=== PATIENT | male | born 1970 | race Caucasian/White ===

== ENCOUNTER 2020-03-30 00:57 | Emergency (ER) | payer BC ==
--- NOTE | 2020-03-30 01:26 | EDM.PDOC ---
ED HPI GENERAL MEDICAL PROBLEM - General Chief Complaint: Chest Pain Stated Complaint: CHEST PAIN Time Seen by Provider: 03/30/20 01:10 Source of Information: Reports: Patient, Family History Limitations: Reports: No Limitations - History of Present Illness INITIAL COMMENTS - FREE TEXT/NARRATIVE: 49-year-old male arrives with left-sided chest discomfort for the past couple of hours. It started as a tightness in his left chest without shortness of breath, diaphoresis or nausea. It did not hurt to breathe. He started developing an ache in his left arm then, and a slight discomfort in his left neck. He got up and went to the bathroom, got a glass of water and sat in a chair for a while and it went away. He was resting in the chair when it woke him up because it had returned, again went into his left arm so he came in. On arrival to the emergency room it had resolved again. He has hypertension and hypercholesterolemia, is a smoker but does not have a significant family history of heart disease. He has never had a cardiac evaluation or test. An EKG was done on arrival which was normal but he was not having pain at the time. Onset: Sudden (Started fairly suddenly 2 to 3 hours ago) Location: Reports: Chest, Upper Extremity, Left Quality: Reports: Ache, Pressure Associated Symptoms: Reports: Chest Pain. Denies: Cough, Diaphoresis, Fever/Chills, Headaches, Malaise, Nausea/Vomiting, Shortness of Breath, Weakness - Related Data Allergies Allergy/AdvReac Type Severity Reaction Status Date / Time No Known Allergies Allergy Verified 03/30/20 01:15 Home Meds: Home Meds Aspirin [[place] Aspirin] 81 mg PO DAILY 03/30/20 [History] Rosuvastatin [Crestor] 10 mg PO DAILY 03/30/20 [History] lisinopriL [Lisinopril] 5 mg PO DAILY 03/30/20 [History] ED ROS GENERAL - Review of Systems Review Of Systems: See Below Constitutional: Denies: Fever, Chills, Malaise HEENT: Reports: Other (Slight pain into the left neck) Respiratory: Denies: Shortness of Breath, Wheezing, Pleuritic Chest Pain, Cough Cardiovascular: Reports: Chest Pain. Denies: Palpitations GI/Abdominal: Denies: Abdominal Pain, Nausea, Vomiting Musculoskeletal: Reports: Arm Pain (Left side) Skin: Reports: No Symptoms Neurological: Reports: No Symptoms. Denies: Paresthesia Psychiatric: Reports: No Symptoms ED EXAM, GENERAL - Physical Exam Exam: See Below Exam Limited By: No Limitations General Appearance: Alert, No Apparent Distress Eye Exam: Bilateral Eye: Normal Inspection Head: Atraumatic Neck: Supple, Non-Tender Respiratory/Chest: No Respiratory Distress, Lungs Clear Cardiovascular: Regular Rate, Rhythm, No Murmur, No Rub GI/Abdominal: Soft, Non-Tender Extremities: Normal Inspection. No: Pedal Edema, Arm Pain Neurological: Alert, Oriented Psychiatric: Normal Affect, Normal Mood Skin Exam: Warm, Dry EKG INTERPRETATION EKG Date: 03/30/20 Rhythm: NSR QRS: Normal ST-T: Normal Course - Vital Signs Last Recorded V/S: Last Vital Signs Temp 97.7 F 03/30/20 01:19 Pulse Resp 12 03/30/20 01:19 BP 136/83 03/30/20 01:19 Pulse Ox 98 03/30/20 01:19 - Orders/Labs/Meds Orders: Active Orders 24 hr Category Date Time Status EKG Documentation Completion [RC] ASDIRECTED Care 03/30/20 01:15 Active Chest 1V Frontal [CR] Stat Exams 03/30/20 01:14 Taken EKG 12 Lead [EK] Routine Ther 03/30/20 01:14 Ordered Labs: Laboratory Tests 03/30/20 03/30/20 Range/Units 01:30 01:30 WBC 7.2 (4.5-11.0) K/uL RBC 4.66 (4.30-5.90) M/uL Hgb 13.7 (12.0-15.0) g/dL Hct 41.6 (40.0-54.0) % MCV 89 (80-98) fL MCH 29 (27-31) pg MCHC 33 (32-36) % Plt Count 212 (150-400) K/uL Neut % (Auto) 49 (36-66) % Lymph % (Auto) 38 (24-44) % [place] % (Auto) 8 H (2-6) % Eos % (Auto) 5 H (2-4) % Baso % (Auto) 0 (0-1) % Sodium 141 (140-148) mmol/L Potassium 3.8 (3.6-5.2) mmol/L Chloride 105 (100-108) mmol/L Carbon Dioxide 26 (21-32) mmol/L Anion Gap 10.5 (5.0-14.0) mmol/L BUN 12 (7-18) mg/dL Creatinine 1.2 (0.8-1.3) mg/dL Est Cr Clr Drug Dosing 77.73 mL/min Estimated GFR (MDRD) > 60 (>60) Glucose 123 H (74-106) mg/dL Calcium 8.8 (8.5-10.1) mg/dL Total Bilirubin 0.3 (0.2-1.0) mg/dL AST 18 (15-37) U/L ALT 38 (12-78) U/L Alkaline Phosphatase 70 (46-116) U/L Troponin I < 0.017 (0.000-0.056) ng/mL Total Protein 6.9 (6.4-8.2) g/dL Albumin 3.5 (3.4-5.0) g/dL Globulin 3.4 (2.3-3.5) g/dL Albumin/Globulin Ratio 1.0 L (1.2-2.2) - Re-Assessments/Exams Free Text/Narrative Re-Assessment/Exam: 03/30/20 01:25 Patient is already taken aspirin at home, and EKG was normal. A 1 view chest x- ray was ordered along with a CBC, CMP and troponin. If patient's pain recurs he will let us know but no further treatment given considering he is asymptomatic at this time. 03/30/20 02:03 Patient was in the ER for a full hour and had no further symptoms. Troponin was 0, remaining labs were reassuring. He will return between 7 and 8 AM for a second troponin, or return sooner if pain recurs and is persistent. Departure - Departure Time of Disposition: 02:13 Disposition: Home, Self-Care 01 Clinical Impression: Atypical chest pain - Discharge Information Instructions: Nonspecific Chest Pain, Adult, [id number] Referrals: PCP,None [Primary Care Provider] - Forms: ED Department Discharge Care Plan Goals: Return at 7 AM for an outpatient troponin, results will be discussed with you by Officer when available. Return anytime if pain recurs and is persistent. Consider an antacid such as Prilosec on a daily basis for the next 7 to 14 days. Sepsis Event Note (ED) - Focused Exam Vital Signs: Vital Signs Temp Resp BP Pulse Ox 03/30/20 01:19 97.7 F 12 136/83 98 - My Orders Last 24 Hours: My Active Orders 03/30/20 01:14 Chest 1V Frontal [CR] Stat EKG 12 Lead [EK] Routine 03/30/20 01:15 EKG Documentation Completion [RC] ASDIRECTED - Assessment/Plan Last 24 Hours: My Active Orders 03/30/20 01:14 Chest 1V Frontal [CR] Stat EKG 12 Lead [EK] Routine 03/30/20 01:15 EKG Documentation Completion [RC] ASDIRECTED
--- NOTE | 2020-03-30 10:20 | CR ---
CHEST: Portable 03/30/2020 at 1:28 AM CLINICAL HISTORY:Chest pain COMPARISON:None FINDINGS: The heart size, pulmonary vascularity and hilar structures are normal. No infiltrate effusion or pneumothorax is seen. IMPRESSION: No acute cardiopulmonary process.
== END 2020-03-30 02:14 | disposition home or self-care (01) ==
LOC: JP.ED 00:57
DX: R07.89 Other chest pain (principal); Z79.82 Long term (current) use of aspirin
CPT/HCPCS: 36415; 71045; 71045-26; 80053; 84484; 85025; 93005; 93010; 99285-25

== ENCOUNTER 2020-03-30 11:46 | Emergency (ER) | payer BC ==
[2020-03-30] MEDS ORDERED: Ticagrelor 90 MG Tab PO ONE (12:53)
[2020-03-30] MEDS ORDERED: Heparin Sodium 5,000 Units/ML Vial IVPUSH ONE (12:53)
[2020-03-30] MEDS ORDERED: Sodium Chloride 0.9% 10 ML Syringe FLUSH PRN (12:53)
[2020-03-30] MEDS ORDERED: Heparin Sodium/D5W 25,000 UNITS/500 ML BAG IV SCH (13:00)
--- NOTE | 2020-03-30 13:41 | EDM.PDOC ---
ED HPI GENERAL MEDICAL PROBLEM - General Chief Complaint: Cardiovascular Problem Time Seen by Provider: 03/30/20 12:53 - History of Present Illness INITIAL COMMENTS - FREE TEXT/NARRATIVE: Please see prior note for details this is a continuation of the visit from early this morning - Related Data Allergies Allergy/AdvReac Type Severity Reaction Status Date / Time No Known Allergies Allergy Verified 03/30/20 01:15 Home Meds: Home Meds Aspirin [[place] Aspirin] 81 mg PO DAILY 03/30/20 [History] Rosuvastatin [Crestor] 20 mg PO DAILY 03/30/20 [History] lisinopriL [Lisinopril] 5 mg PO DAILY 03/30/20 [History] Past Medical History HEENT History: Reports: Impaired Vision Cardiovascular History: Reports: High Cholesterol, Hypertension Respiratory History: Reports: None Gastrointestinal History: Reports: None Genitourinary History: Reports: None Musculoskeletal History: Reports: None Neurological History: Reports: None Psychiatric History: Reports: None Endocrine/Metabolic History: Reports: None Hematologic History: Reports: None Immunologic History: Reports: None Oncologic (Cancer) History: Reports: None Dermatologic History: Reports: None - Infectious Disease History Infectious Disease History: Reports: Chicken Pox - Past Surgical History Head Surgeries/Procedures: Reports: None HEENT Surgical History: Reports: None Cardiovascular Surgical History: Reports: None Respiratory Surgical History: Reports: None GI Surgical History: Reports: None Endocrine Surgical History: Reports: None Neurological Surgical History: Reports: None Musculoskeletal Surgical History: Reports: None Dermatological Surgical History: Reports: None Social & Family History - Family History Family Medical History: Noncontributory - Tobacco Use Smoking Status *Q: Current Every Day Smoker Years of Tobacco use: 25 Packs/Tins Daily: 0.5 Used Tobacco, but Quit: No Second Hand Smoke Exposure: No - Caffeine Use Caffeine Use: Reports: Coffee, Soda - Alcohol Use Days Per Week of Alcohol Use: 2 Number of Drinks Per Day: 2 Total Drinks Per Week: 4 Date of Last Drink: 03/29/20 Time of Last Drink: 22:00 - Recreational Drug Use Recreational Drug Use: No ED ROS GENERAL - Review of Systems Review Of Systems: See Below Reason Not Obtained: He is asymptomatic at this time please see prior note for review ED EXAM, GENERAL - Physical Exam Exam: See Below Exam Limited By: No Limitations General Appearance: Alert, WD/WN, No Apparent Distress Respiratory/Chest: No Respiratory Distress, Lungs Clear, Normal Breath Sounds, No Accessory Muscle Use, Chest Non-Tender Cardiovascular: Regular Rate, Rhythm, No Murmur GI/Abdominal: Soft, Non-Tender Course - Vital Signs Last Recorded V/S: Last Vital Signs Temp 97.6 F 03/30/20 13:11 Pulse 62 03/30/20 13:25 Resp 16 03/30/20 13:25 BP 130/90 03/30/20 13:25 Pulse Ox 99 03/30/20 13:25 - Orders/Labs/Meds Orders: Active Orders 24 hr Category Date Time Status Cardiac Monitoring [RC] STAT Care 03/30/20 12:53 Active Communication Order [RC] Per Unit Routine Care 03/30/20 12:53 Active Communication Order [RC] Per Unit Routine Care 03/30/20 12:53 Active EKG Documentation Completion [RC] ASDIRECTED Care 03/30/20 13:00 Active Oxygen Therapy [RC] ASDIRECTED Care 03/30/20 12:53 Active Peripheral IV Care [RC] . DIRECTED Care 03/30/20 12:54 Active INR,PT,PROTHROMBIN TIME [COAG] Stat Lab 03/30/20 13:00 Received PTT,PARTIAL THROMBOPLSTIN TIME [COAG] Stat Lab 03/30/20 13:00 Received Heparin Sodium/D5W [Heparin 25,000 Units in D5W 500 ML] Med 03/30/20 13:00 Active 25,000 units in 500 ml IV TITRATE Sodium Chloride 0.9% [Saline Flush] Med 03/30/20 12:53 Active 10 ml FLUSH ASDIRECTED PRN Peripheral IV Insertion Adult [OM.PC] Stat Oth 03/30/20 12:54 Ordered EKG 12 Lead [EK] Stat Ther 03/30/20 12:59 Ordered Medication Orders Heparin Sodium/Dextrose (Heparin 25,000 Units In D5w 500 Ml) 25,000 units in 500 mls @ 20 mls/hr IV TITRATE CRICKET; Protocol Sodium Chloride (Saline Flush) 10 ml FLUSH ASDIRECTED PRN PRN Reason: Keep Vein Open Meds: Medications Generic Name Dose Route Start Last Admin Trade Name Freq PRN Reason Stop Dose Admin Heparin Sodium/Dextrose 25,000 units in 500 mls @ 20 mls/hr 03/30/20 13:00 Heparin 25,000 Units In D5w 500 Ml IV TITRATE CRICKET Protocol Sodium Chloride 10 ml 03/30/20 12:53 Saline Flush FLUSH ASDIRECTED PRN Keep Vein Open Discontinued Medications Generic Name Dose Route Start Last Admin Trade Name Freq PRN Reason Stop Dose Admin Heparin Sodium (Porcine) 4,000 units 03/30/20 12:53 Heparin Sodium IVPUSH 03/30/20 12:54 ONETIME ONE Ticagrelor 180 mg 03/30/20 12:53 Brilinta PO 03/30/20 12:54 ONETIME ONE Departure - Departure Time of Disposition: 13:44 Disposition: DC/Tfer to Acute Hospital 02 Reason for Transfer *Q: Primary PCI Indicated Condition: Fair Clinical Impression: Non-ST elevation myocardial infarction (NSTEMI) Referrals: PCP,None [Primary Care Provider] - Sepsis Event Note (ED) - Evaluation Sepsis Screening Result: No Definite Risk - Focused Exam Vital Signs: Vital Signs Temp Pulse Resp BP Pulse Ox 03/30/20 13:25 62 16 130/90 99 03/30/20 13:11 97.6 F 60 13 135/81 98 - My Orders Last 24 Hours: My Active Orders 03/30/20 12:53 Cardiac Monitoring [RC] STAT Communication Order [RC] Per Unit Routine Communication Order [RC] Per Unit Routine Oxygen Therapy [RC] ASDIRECTED Sodium Chloride 0.9% [Saline Flush] 10 ml FLUSH ASDIRECTED PRN 03/30/20 12:54 Peripheral IV Care [RC] . DIRECTED Peripheral IV Insertion Adult [OM.PC] Stat 03/30/20 12:59 EKG 12 Lead [EK] Stat 03/30/20 13:00 EKG Documentation Completion [RC] ASDIRECTED INR,PT,PROTHROMBIN TIME [COAG] Stat PTT,PARTIAL THROMBOPLSTIN TIME [COAG] Stat Heparin Sodium/D5W [Heparin 25,000 Units in D5W 500 ML] 25,000 units in 500 ml IV TITRATE - Assessment/Plan Last 24 Hours: My Active Orders 03/30/20 12:53 Cardiac Monitoring [RC] STAT Communication Order [RC] Per Unit Routine Communication Order [RC] Per Unit Routine Oxygen Therapy [RC] ASDIRECTED Sodium Chloride 0.9% [Saline Flush] 10 ml FLUSH ASDIRECTED PRN 03/30/20 12:54 Peripheral IV Care [RC] . DIRECTED Peripheral IV Insertion Adult [OM.PC] Stat 03/30/20 12:59 EKG 12 Lead [EK] Stat 03/30/20 13:00 EKG Documentation Completion [RC] ASDIRECTED INR,PT,PROTHROMBIN TIME [COAG] Stat PTT,PARTIAL THROMBOPLSTIN TIME [COAG] Stat Heparin Sodium/D5W [Heparin 25,000 Units in D5W 500 ML] 25,000 units in 500 ml IV TITRATE Plan: Assessment Acuity = acute Site and laterality = non-ST elevation myocardial infarction Etiology = probable underlying coronary artery disease Manifestations = none Location of injury = Home Lab values = troponin is elevated at 0.081 this is a trend up from a negative reading at 3 this morning Plan Call discussed case with Dr. Francois [facility] at 1335 he kindly accept the patient in transport will be transported via EMS ground thus far he is received aspirin 180 mg Brilinta 4000 unit bolus of heparin heparin drip will be initiated in route he is remained chest pain-free while in the emergency department This note was dictated using [employer] voice recognition software please call with any questions on syntax or grammar.
== END 2020-03-30 16:00 ==
LOC: JP.ED 11:46
DX: I21.4 Non-ST elevation (NSTEMI) myocardial infarction (principal); I10 Essential (primary) hypertension; E78.00 Pure hypercholesterolemia, unspecified; F17.210 Nicotine dependence, cigarettes, uncomplicated; Z79.899 Other long term (current) drug therapy; Z79.82 Long term (current) use of aspirin
CPT/HCPCS: 36415; 85610; 85730; 93005; 96365; 96366; 96376; 99285; A9270; J1644